=== PATIENT | female | born 1975 | race Caucasian/White ===

== ENCOUNTER → 2017-09-30 11:06 | Outpatient (CLI) | payer OTHER, SELFPAY ==
--- NOTE | 2017-09-30 | DI.MG.S_ITS ---
BILATERAL DIGITAL SCREENING MAMMOGRAM 3D/2D WITH CAD: 09/30/2017 CLINICAL: Routine screening. Baseline exam. No prior exams were available for comparison. The tissue of both breasts is heterogeneously dense. This may lower the sensitivity of mammography. Current study was also evaluated with a Computer Aided Detection (CAD) system. There is a mass in the left breast at 12 o'clock posterior depth. No other significant masses, calcifications, or other findings are seen in either breast. IMPRESSION: INCOMPLETE: NEEDS ADDITIONAL IMAGING EVALUATION The mass in the left breast is indeterminate. Additional views with possible ultrasound are recommended. This exam was interpreted at Station ID: [id number]. NOTE: For mammograms, a report in lay terms will be sent to the patient. Approximately 15% of breast malignancies will not be visualized mammographically. In the management of a palpable breast mass, a negative mammogram must not discourage biopsy of a clinically suspicious lesion. Electronically Signed By: Esteban diaz/adilene:09/30/2017 11:54:10 letter sent: Additional Imaging Needed ACR BI-RADS Category 0: Incomplete [id number]
== END ==
PROVIDERS: Family Provider Naturopath; PCP Naturopath; Visit Provider Naturopath
DX: Z12.31 Encounter for screening mammogram for malignant neoplasm of breast (principal)
CPT/HCPCS: 77063; 77067

== ENCOUNTER → 2017-10-15 09:02 | Outpatient (CLI) | payer OTHER, SELFPAY ==
--- NOTE | 2017-10-15 | DI.MG.S_ITS ---
UNILATERAL LEFT DIGITAL DIAGNOSTIC MAMMOGRAM: 10/15/2017 CLINICAL: Additional evaluation requested from prior study. [facility] The tissue of the left breast is heterogeneously dense. This may lower the sensitivity of mammography. There is a 0.9 cm oval equal density mass with a macrolobulated margin in the left breast at 12 o'clock posterior depth. No other significant masses or calcifications are seen in the breast. IMPRESSION: INCOMPLETE: NEEDS ADDITIONAL IMAGING EVALUATION The 0.9 cm oval equal density mass in the left breast is indeterminate. An ultrasound is recommended. This exam was interpreted at Station ID: [id number]. NOTE: For mammograms, a report in lay terms will be sent to the patient. Approximately 15% of breast malignancies will not be visualized mammographically. In the management of a palpable breast mass, a negative mammogram must not discourage biopsy of a clinically suspicious lesion. Electronically Signed By: Anoop [email or web address]/adilene:10/15/2017 10:05:09 letter sent: Need Ultrasound ACR BI-RADS Category 0: Incomplete [id number]
--- NOTE | 2017-10-15 | DI.US.S_ITS ---
ULTRASOUND OF LEFT BREAST: 10/15/2017 CLINICAL: Patient returns today to evaluate a density in the left breast. Comparison is made to exams dated: 10/15/2017 mammogram and 09/30/2017 mammogram - [facility]. Color flow and real-time ultrasound of the left breast were performed on the areas of interest. There is a 1.5 cm x 1 cm x 0.7 cm oval mass with a lobulated margin in the left breast at 12 o'clock posterior depth. This oval mass is hypoechoic. This correlates with mammography findings. Color flow imaging demonstrates that there is no vascularity present. IMPRESSION: SUSPICIOUS OF MALIGNANCY - FOLLOW-UP RECOMMENDED The 1.5 cm x 1 cm x 0.7 cm oval mass in the left breast is at an intermediate suspicion for malignancy. An ultrasound guided biopsy is recommended. The findings were discussed with the patient at the conclusion of the study by Dr. Pruitt. This exam was interpreted at Station ID: [id number]. Electronically Signed By: Anoop mccarthy/:10/15/2017 14:59:47 letter sent: Biopsy Required Ultrasound BI-RADS: 4b Suspicious abnormality - intermediate suspicion of malignancy
== END ==
PROVIDERS: Family Provider Naturopath; PCP Naturopath; Visit Provider Naturopath
DX: R92.8 Other abnormal and inconclusive findings on diagnostic imaging of breast (principal); N63.0 Unspecified lump in unspecified breast
CPT/HCPCS: 76642; 77065; G0279